=== PATIENT | male | born 1965 | race Two or more races ===

== ENCOUNTER 2018-04-07 08:59 | Emergency (ER) | payer OTHER ==
[2018-04-07 09:15] VITALS: BP 122/83; PULSE 72; TEMP 98.9; BMI 30.7
[2018-04-07] MEDS ORDERED: CYCLOBENZAPRINE HCL 10 MG TABLET (FP) PO ONE (09:46)
[2018-04-07] MEDS ORDERED: NAPROXEN 500 MG TABLET (FP) PO ONE (09:47)
[2018-04-07] MEDS ORDERED: CYCLOBENZAPRINE HCL 10 MG TABLET (FP) ONE (09:49)
[2018-04-07] MEDS ORDERED: NAPROXEN 500 MG TABLET (FP) ONE (09:49)
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
[2018-04-07] MEDS ORDERED: ONDANSETRON *ODT* 4 MG TABLET SL ONE (11:06)
[2018-04-07] MEDS ORDERED: ONDANSETRON *ODT* 4 MG TABLET ONE (11:07)
== END 2018-04-07 11:09 | disposition home or self-care (01) ==
LOC: JERFT 08:59
DX: S13.4XXA Sprain of ligaments of cervical spine, initial encounter (principal); M54.5 Low back pain; V43.52XA Car driver injured in collision with other type car in traffic accident, initial encounter; Y92.414 Local residential or business street as the place of occurrence of the external cause; Y93.89 Activity, other specified; Y99.8 Other external cause status
CPT/HCPCS: 72050-TC-FY; 72100-TC-FY; 99281-25; Q0162

== ENCOUNTER 2019-06-18 19:01 | Emergency (ER) | payer BC, OTHER ==
[2019-06-18 19:50] VITALS: TEMP 98; BMI 31.0
--- NOTE | 2019-06-18 19:50 | PDOC ---
Rapid Medical Evaluation Medical Evaluation: Allergies Allergy/AdvReac Type Severity Reaction Status Date / Time ibuprofen AdvReac GERD Verified 04/07/18 09:11 06/18/19 19:37 I have performed a brief in-person evaluation of this patient. The patient presents with a chief complaint of:scalp swelling and pain x 2 days. Shaves head daily. No f/c. No pmhx Pertinent physical exam findings: swelling to L parietal scalp extending behind R ear but not involving mastoid, +ttp, unable to appreciate erythema, no fluctuance of discharge I have ordered the following: nothing The patient will proceed to the ED for further evaluation. Discharge Disposition - Diagnosis Superficial swelling of scalp - Referrals - Patient Instructions - Post Discharge Activity
--- NOTE | 2019-06-18 20:11 | PDOC ---
History of Present Illness - General Chief Complaint: Edema Stated Complaint: HEAD SWOLLEN Time Seen by Provider: 06/18/19 19:45 - History of Present Illness Initial Comments: 06/18/19 20:10 53-year-old male with a past medical history of hypertension presents for evaluation of headache and swelling of his left scalp x3 days without any precipitating traumatic event Past History - Past Medical History Allergies/Adverse Reactions: Allergies Allergy/AdvReac Type Severity Reaction Status Date / Time ibuprofen AdvReac GERD Verified 06/18/19 19:50 Home Medications: Ambulatory Orders Methocarbamol [Robaxin -] 500 mg PO TID PRN #21 tablet 04/07/18 Naproxen 500 mg PO BID PRN #20 tablet 04/07/18 Cephalexin [Keflex] 500 mg PO QID #40 capsule 06/18/19 Sulfamethoxazole/Trimethoprim [Bactrim Ds -] 1 tab PO BID #14 tablet 06/18/19 COPD: No - Surgical History Abdominal Surgery: Yes (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 HEAD: Normal with no signs of trauma. There is some left-sided parietal scalp swelling and areas of fluctuance without any areas of erythema induration or warmth the areas are sensitive. The area tracks from the left parietal scalp down to the periauricular area behind the left ear EYES: sclera anicteric, conjunctiva clear. ENT: Ears normal tympanic membranes normal oropharynx clear uvula midline NECK: Normal range of motion LUNGS: Breath sounds equal, clear to auscultation bilaterally. No wheezes, and no crackles. HEART: S1 and S2 without murmur, rub or gallop. ABDOMEN: Soft, nontender, normoactive bowel sounds. No guarding, no rebound. No masses. EXTREMITIES: Normal range of motion, no edema. No clubbing or cyanosis. No cords, erythema, or tenderness. NEUROLOGICAL: Cranial nerves II through XII grossly intact. PSYCH: Normal mood, normal affect. SKIN: Warm, Dry, normal turgor, no rashes or lesions noted. ED Treatment Course - RADIOLOGY Radiology Studies Ordered: Category Date Time Status HEAD CT WITHOUT CONTRAST [CT] Stat CT Scan 06/18/19 20:09 Ordered Medical Decision Making - Medical Decision Making 06/18/19 20:39 CAT scan of the head is normal. There does appear to be an area of fluctuance clinically when I palpate the left parietal scalp this area seems to track in the periauricular region posteriorly. I will place this patient on a course of Bactrim and Keflex this may be forming abscess and I will have him follow-up with dermatology. Tylenol for pain and headaches. This was discussed 06/18/19 20:40 Discharge - Discharge Information Problems reviewed: Yes Clinical Impression/Diagnosis: Superficial swelling of scalp, Headache Condition: Stable Disposition: HOME - Admission No - Follow up/Referral Referrals: Dorothy Carlos MD [Staff Physician] - - Patient Discharge Instructions Additional Instructions: Please start the antibiotics and follow-up with dermatology in 2 to 3 days without fail. Return to the emergency room for worsening symptoms. May take Tylenol as directed for pain. - Post Discharge Activity
[2019-06-18 22:20] VITALS: BP 140/85; PULSE 84
== END 2019-06-18 22:20 | disposition home or self-care (01) ==
LOC: JERFT 19:01
DX: R22.0 Localized swelling, mass and lump, head (principal); R51 Headache; I10 Essential (primary) hypertension; Z88.6 Allergy status to analgesic agent
CPT/HCPCS: 70450-TC; 99281-25